=== PATIENT | female | born 1990 | race Two or more races ===

== ENCOUNTER → 2018-07-25 | Outpatient (CLI) | payer OTHER | END | disposition home or self-care (01) | LOC: MAMO-SONO 09:45 → SONOGRAMA 10:02 | DX: R10.13 Epigastric pain (principal) ==

== ENCOUNTER 2018-07-29 09:33 | Outpatient (CLI) | payer OTHER | END 2018-07-29 09:46 | disposition home or self-care (01) | LOC: RX STUDY 09:33 | DX: R10.13 Epigastric pain (principal); K21.9 Gastro-esophageal reflux disease without esophagitis ==